=== PATIENT | male | born 1995 | race Caucasian/White ===

== ENCOUNTER 2016-12-26 10:53 | Emergency (ER) | payer OTHER ==
[2016-12-26 10:58] VITALS: O2SAT 95
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
[2016-12-26 12:46] VITALS: BP 124/76; PULSE 81; RESP 17; TEMP 99
== END 2016-12-26 12:30 | disposition home or self-care (01) ==
DX: S02.2XXA Fracture of nasal bones, initial encounter for closed fracture (principal); Y08.89XA Assault by other specified means, initial encounter